=== PATIENT | female | born 1980 | race Caucasian/White ===

== ENCOUNTER 2021-04-16 18:33 | Emergency (ER) | payer OTHER ==
--- NOTE | 2021-04-16 19:29 | ERPHSYRPT ---
- History of Present Illness Time Seen by Provider: 04/16/21 19:20 Historian: patient Exam Limitations: no limitations Patient Subjective Stated Complaint: Abdominal pain Triage Nursing Assessment: Patient ambulated back to ED and transferred self to bed. Patient A+O X3. Patient's skin pink,warm and dry. Patient complains of lower abdominal pain that started this am constant cramping 8/10. Abdomen soft and round with BS X 4. Patient complains of N/V and diarrhea. Physician History: Since about 7 hours ago pt has had nausea, vomiting x3 without blood and lower abdominal cramping. Pt also c/o diarrhea without blood for the past 2 months. Pt denies fever, cough, chest pain, shortness of air. Allergies/Adverse Reactions: No Known Drug Allergies Allergy (Unverified 04/16/21 18:42) Home Medications: Rosuvastatin Calcium [Crestor] 1 tab PO HS 04/16/21 [History] Venlafaxine HCl ER 75 mg [Effexor XR 75 MG] 1 tab PO DAILY 04/16/21 [History] Hx Influenza Vaccination/Date Given: No Hx Pneumococcal Vaccination/Date Given: No Immunizations Up to Date: Yes Travel Risk - International Travel Have you traveled outside of the country in past 3 weeks: No - Coronavirus Screening Are you exhibiting any of the following symptoms?: No Close contact with a COVID-19 positive Pt in past 14-21 Days: No - Vaccine Status Have you recieved a Covid-19 vaccination: No - Review of Systems Constitutional: No Fever Respiratory: No Cough, No Dyspnea Cardiac: No Chest Pain Abdominal/Gastrointestinal: Abdominal Pain, Nausea, Vomiting, Diarrhea All Other Systems: Reviewed and Negative - Past Medical History Neurological History: Migraines Cardiac History: No Pertinent History, High Cholesterol Respiratory History: No Pertinent History Endocrine Medical History: No Pertinent History Musculoskeletal History: Degenerative Disk Disease - Past Surgical History Past Surgical History: Yes Gastrointestinal: Appendectomy, Cholecystectomy Female Surgical History: Section - Social History Smoking Status: Current every day smoker How long have you smoked: years Exposure to second hand smoke: Yes Drug Use: none Patient Lives Alone: No - Female History Hx Last Menstrual Period: ablation Hx Now: No - Nursing Vital Signs Nursing Vital Signs: Initial Vital Signs Temperature 97.0 F 04/16/21 18:43 Pulse Rate 95 H 04/16/21 18:43 Respiratory Rate 18 04/16/21 18:43 Blood Pressure 150/87 04/16/21 18:43 O2 Sat by Pulse Oximetry 100 04/16/21 18:43 Pain Scale Pain Intensity 6 - Physical Exam General Appearance: alert Eye Exam: PERRL/EOMI Ears, Nose, Throat Exam: TMs normal, pharynx normal Neck Exam: normal inspection Respiratory Exam: normal breath sounds Cardiovascular Exam: normal heart sounds Gastrointestinal/Abdomen Exam: soft, other (B.S. mildly hyperactive and normotonic.) Back Exam: normal inspection Extremity Exam: No pedal edema Neurologic Exam: alert, cooperative Skin Exam: normal color SpO2 Interpretation: normal SpO2: 100 O2 Delivery: Room Air - Course Nursing assessment & vital signs reviewed: Yes - CT Exams Abdomen/Pelvis CT Interpretation: Tele-radiologist Report (No evidence of acute intra-abdominal or pelvic pathology.) Chest CT Interpretation: Tele-radiologist Report (Old granulomatous disease, otherwise unremarkable examination.) Ordered Tests: Active Orders 24 hr Category Date Time Status IV Insertion STAT Care 04/16/21 19:33 Active ABDOMEN AND PELVIS W/0 CONTRAS [CT] Stat Exams 04/16/21 19:34 Taken CHEST WITH CONTRAST [CT] Stat Exams 04/16/21 21:28 Taken AMYLASE Stat Lab 04/16/21 18:45 Completed CBC W DIFF Stat Lab 04/16/21 18:45 Completed CMP Stat Lab 04/16/21 18:45 Completed HCG QUALITATIVE,SERUM Stat Lab 04/16/21 18:45 Completed LIPASE Stat Lab 04/16/21 18:45 Completed UA W/RFX UR CULTURE Stat Lab 04/16/21 19:36 Completed Medication Summary Discontinued Medications Generic Name Dose Route Start Last Admin Trade Name Freq PRN Reason Stop Dose Admin Fentanyl Citrate 50 mcg 04/16/21 19:33 04/16/21 19:41 Sublimaze 100 Mcg/2 Ml IV 04/16/21 19:34 50 mcg STAT ONE Administration Fentanyl Citrate Confirm 04/16/21 19:38 Sublimaze 100 Mcg/2 Ml Administered 04/16/21 19:39 Dose 100 mcg .ROUTE .STK-MED ONE Fentanyl Citrate 100 mcg 04/16/21 20:53 04/16/21 21:01 Sublimaze 100 Mcg/2 Ml IV 04/16/21 20:54 100 mcg STAT ONE Administration Fentanyl Citrate Confirm 04/16/21 20:58 Sublimaze 100 Mcg/2 Ml Administered 04/16/21 20:59 Dose 100 mcg .ROUTE .STK-MED ONE Sodium Chloride 1,000 mls @ 999 mls/hr 04/16/21 19:33 04/16/21 21:20 Sodium Chloride 0.9% 1000 Ml IV 04/16/21 20:33 Infused .Q1H1M STA Infusion Sodium Chloride Confirm 04/16/21 19:38 Sodium Chloride 0.9% 1000 Ml Administered 04/16/21 19:39 Dose 1,000 mls @ ud .ROUTE .STK-MED ONE Ondansetron HCl 4 mg 04/16/21 19:33 04/16/21 19:41 Zofran 4 Mg/2 Ml Vial IV 04/16/21 19:34 4 mg STAT ONE Administration Ondansetron HCl Confirm 04/16/21 19:38 Zofran 4 Mg/2 Ml Vial Administered 04/16/21 19:39 Dose 4 mg .ROUTE .STK-MED ONE Lab/Rad Data: Laboratory Result Diagrams 04/16/21 18:45 04/16/21 18:45 Laboratory Results 04/16/21 04/16/21 04/16/21 Range/Units 19:36 18:45 18:45 WBC (4.0-10.5) K/mm3 RBC (4.1-5.4) M/mm3 Hgb (12.0-16.0) gm/dl Hct (35-47) % MCV (78-100) fl MCH (26-32) pg MCHC (32-36) g/dl RDW (11.5-14.0) % Plt Count (150-450) K/mm3 MPV (7.5-11.0) fl Gran % (36.0-66.0) % Eos # (Auto) (0-0.5) Absolute Lymphs (auto) (1.0-4.6) Absolute Monos (auto) (0.0-1.3) Lymphocytes % (24.0-44.0) % Monocytes % (0.0-12.0) % Eosinophils % (0.00-5.0) % Basophils % (0.0-0.4) % Absolute Granulocytes (1.4-6.9) Basophils # (0-0.4) Sodium 137 (137-145) mmol/L Potassium 3.8 (3.5-5.1) mmol/L Chloride 103 (98-107) mmol/L Carbon Dioxide 29 (22-30) mmol/L Anion Gap 9.6 (5-15) MEQ/L BUN 9 (7-17) mg/dL Creatinine 0.79 (0.52-1.04) mg/dL Estimated GFR > 60.0 ML/MIN Glucose 133 H (74-106) mg/dL Calcium 9.4 (8.4-10.2) mg/dL Total Bilirubin 0.30 (0.2-1.3) mg/dL AST 26 (14-36) U/L ALT 27 (0-35) U/L Alkaline Phosphatase 68 (38-126) U/L Serum Total Protein 7.0 (6.3-8.2) g/dL Albumin 4.5 (3.5-5.0) g/dL Amylase 63 (30-110) U/L Lipase 106 (23-300) U/L Serum , Qual NEGATIVE (Negative) Urine Color YELLOW (YELLOW) Urine Appearance SLIGHTLY CLOUDY (CLEAR) Urine pH 7.0 (5-6) Ur Specific Purlear 1.017 (1.005-1.025) Urine Protein NEGATIVE (Negative) Urine Ketones NEGATIVE (NEGATIVE) Urine Blood NEGATIVE (0-5) Stephon/ul Urine Nitrite NEGATIVE (NEGATIVE) Urine Bilirubin NEGATIVE (NEGATIVE) Urine Urobilinogen NEGATIVE (0-1) mg/dL Ur Leukocyte Esterase NEGATIVE (NEGATIVE) Urine WBC (Auto) 0-2 (0-5) /HPF Urine RBC (Auto) 3-5 (0-2) /HPF U Epithel Cells (Auto) RARE (FEW) /HPF Urine Bacteria (Auto) NONE (NEGATIVE) /HPF Urine Mucus (Auto) SLIGHT (NEGATIVE) /HPF Urine Culture Reflexed NO (NO) Urine Glucose NEGATIVE (NEGATIVE) mg/dL 04/16/21 Range/Units 18:45 WBC 15.2 H (4.0-10.5) K/mm3 RBC 4.91 (4.1-5.4) M/mm3 Hgb 14.7 (12.0-16.0) gm/dl Hct 46.2 (35-47) % MCV 94.1 (78-100) fl MCH 29.9 (26-32) pg MCHC 31.8 L (32-36) g/dl RDW 14.0 (11.5-14.0) % Plt Count 286 (150-450) K/mm3 MPV 10.0 (7.5-11.0) fl Gran % 84.8 H (36.0-66.0) % Eos # (Auto) 0.05 (0-0.5) Absolute Lymphs (auto) 1.62 (1.0-4.6) Absolute Monos (auto) 0.62 (0.0-1.3) Lymphocytes % 10.7 L (24.0-44.0) % Monocytes % 4.1 (0.0-12.0) % Eosinophils % 0.3 (0.00-5.0) % Basophils % 0.1 (0.0-0.4) % Absolute Granulocytes 12.88 H (1.4-6.9) Basophils # 0.02 (0-0.4) Sodium (137-145) mmol/L Potassium (3.5-5.1) mmol/L Chloride (98-107) mmol/L Carbon Dioxide (22-30) mmol/L Anion Gap (5-15) MEQ/L BUN (7-17) mg/dL Creatinine (0.52-1.04) mg/dL Estimated GFR ML/MIN Glucose (74-106) mg/dL Calcium (8.4-10.2) mg/dL Total Bilirubin (0.2-1.3) mg/dL AST (14-36) U/L ALT (0-35) U/L Alkaline Phosphatase (38-126) U/L Serum Total Protein (6.3-8.2) g/dL Albumin (3.5-5.0) g/dL Amylase (30-110) U/L Lipase (23-300) U/L Serum , Qual (Negative) Urine Color (YELLOW) Urine Appearance (CLEAR) Urine pH (5-6) Ur Specific Purlear (1.005-1.025) Urine Protein (Negative) Urine Ketones (NEGATIVE) Urine Blood (0-5) Stephon/ul Urine Nitrite (NEGATIVE) Urine Bilirubin (NEGATIVE) Urine Urobilinogen (0-1) mg/dL Ur Leukocyte Esterase (NEGATIVE) Urine WBC (Auto) (0-5) /HPF Urine RBC (Auto) (0-2) /HPF U Epithel Cells (Auto) (FEW) /HPF Urine Bacteria (Auto) (NEGATIVE) /HPF Urine Mucus (Auto) (NEGATIVE) /HPF Urine Culture Reflexed (NO) Urine Glucose (NEGATIVE) mg/dL - Progress Progress: unchanged Counseled pt/family regarding: lab results, diagnosis, need for follow-up, rad results - Departure Departure Disposition: Home Clinical Impression: Abdominal pain, Vomiting, Nausea, Diarrhea, LLL & AMARIS granuloma Condition: Stable Critical Care Time: No Referrals: LUIS STUART NP [Primary Care Provider] - Instructions: Acute Abdomen (Belly Pain), Adult (DC) Additional Instructions: Follow up with Private Doctor tomorrow. Forms: Work/School Release Form Prescriptions: Ondansetron ODT 4 MG [Zofran Odt 4 mg] 4 mg PO Q6H PRN PRN #10 tab.rapdis PRN Reason: Nausea/Vomiting
[2021-04-16] MEDS ORDERED: Sodium Chloride 0.9% 1000 ML 1,000 ML IV STA (19:33)
[2021-04-16] MEDS ORDERED: Zofran 4 MG/2 ML VIAL IV ONE (19:33)
[2021-04-16] MEDS ORDERED: SUBLIMAZE 100 MCG/2 ML IV ONE ×3 (19:33→22:54)
[2021-04-16] MEDS ORDERED: Sodium Chloride 0.9% 1000 ML 1,000 ML ONE (19:38)
[2021-04-16] MEDS ORDERED: Zofran 4 MG/2 ML VIAL ONE (19:38)
[2021-04-16] MEDS ORDERED: SUBLIMAZE 100 MCG/2 ML ONE ×3 (19:38→22:55)
[2021-04-16 19:41] LABS: Absolute Neutrophil Ct (ANC) 12.88 (1.4-6.9); BASOPHIL % 0.1 % (0.0-0.4); Basophil (Absolute #) 0.02 (0-0.4); Eosinophil % 0.3 % (0.00-5.0); Eosinophil (Absolute #) 0.05 (0-0.5); Hematocrit 46.2 % (35-47); Hemoglobin 14.7 gm/dl (12.0-16.0); Lymphocyte (Absolute #) 1.62 (1.0-4.6); Lymphocytes % 10.7 % (24.0-44.0); Mean Cell Volume 94.1 fl (78-100); Mean Corpuscular Hemoglobin 29.9 pg (26-32); Mean Corpuscular Hgb Concent. 31.8 g/dl (32-36); Monocyte (Absolute #) 0.62 (0.0-1.3); Monocytes % 4.1 % (0.0-12.0); Neutrophil % 84.8 % (36.0-66.0); Platelet Count 286 K/mm3 (150-450); Red Blood Count 4.91 M/mm3 (4.1-5.4); White Blood Count 15.2 K/mm3 (4.0-10.5)
[2021-04-16 19:46] LABS: Appearance SLIGHTLY CLOUDY (CLEAR); Bilirubin NEGATIVE (NEGATIVE); Blood NEGATIVE Ery/ul (0-5); Epithelial Cells RARE /HPF (FEW); Glucose NEGATIVE (NEGATIVE); Ketones NEGATIVE (NEGATIVE); Leukocyte Esterase NEGATIVE (NEGATIVE); Mucus SLIGHT /HPF (NEGATIVE); Nitrite NEGATIVE (NEGATIVE); Protein,Urine Dip NEGATIVE (Negative); Specific Gravity 1.017 (1.005-1.025); Urobilinogen NEGATIVE mg/dL (0-1); WBC 0-2 /HPF (0-5)
[2021-04-16 19:48] LABS: ALBUMIN 4.5 g/dL (3.5-5.0); ALKALINE PHOSPHATASE 68 U/L (38-126); AMYLASE 63 U/L (30-110); ANION GAP 9.6 MEQ/L (5-15); BLOOD UREA NITROGEN 9 mg/dL (7-17); CHLORIDE 103 mmol/L (98-107); Calcium 9.4 mg/dL (8.4-10.2); Carbon Dioxide 29 mmol/L (22-30); Creatinine 1 0.79 mg/dL (0.52-1.04); EST GLOMERULAR FILTRATION RATE > 60.0 ML/MIN; Glucose 133 mg/dL (74-106); LIPASE 106 U/L (23-300); Potassium 3.8 mmol/L (3.5-5.1); SGOT/AST 26 U/L (14-36); SGPT/ALT 27 U/L (0-35); SODIUM 137 mmol/L (137-145)
[2021-04-16 23:02] VITALS: BP 124/83; PULSE 96; O2SAT 96
--- NOTE | 2021-04-17 08:49 | XRAY ---
Indication: Elevated WBC, abdomen pain, left lower lobe granuloma, nausea, vomiting, and diarrhea. Multiple contiguous axial images obtained through the chest using 100 cc Isovue 370 contrast. Comparison: None Lungs demonstrates a few small bilateral calcified granulomas. No suspicious pulmonary mass, infiltrate, or effusion. Heart is not enlarged. Aorta normal in course and caliber. No pathologic mediastinal/hilar lymphadenopathy. Bony thorax intact with minimal degenerative changes throughout the spine. CT abdomen/pelvis reported separately. Impression: Old granulomatous disease. Remaining CT chest with contrast exam is negative. Comment: Preliminary interpretation was made by [facility]. No critical discrepancy.
--- NOTE | 2021-04-17 08:53 | XRAY ---
Indication: Elevated WBC, abdomen pain, left lower lobe granuloma, nausea, vomiting, and diarrhea. Multiple contiguous axial images obtained through the abdomen and pelvis without contrast. Comparison: None CT chest reported separately. Noncontrasted stomach and bowel loops appear nonobstructed. Previous appendectomy and cholecystectomy. Mild sigmoid diverticulosis without diverticulitis. No free fluid/air. Left kidney demonstrates punctate cortical calcification. Remaining liver, pancreas, spleen, adrenal glands, kidneys, ureters, bladder, uterus, and aorta are unremarkable for noncontrast exam. Osseous structures intact with minimal degenerative changes throughout the spine. No ventral or inguinal hernias. Impression: 1. Sigmoid diverticulosis and nonspecific punctate left renal calcification. 2. Remaining CT abdomen/pelvis without contrast exam is negative. Comment: Preliminary interpretation was made by [facility]. No critical discrepancy.
== END 2021-04-16 23:03 | disposition home or self-care (01) ==
LOC: ED 18:33
DX: R10.9 Unspecified abdominal pain (principal); R11.2 Nausea with vomiting, unspecified; R19.7 Diarrhea, unspecified; J84.10 Pulmonary fibrosis, unspecified
CPT/HCPCS: 36000; 36415; 71260; 74176; 80053; 81001; 81025; 82150; 83690; 85025; 96374; 96375; 96376; 99284; J2405; J3010